=== PATIENT | female | born 1950 | race Caucasian/White ===

== ENCOUNTER → 2018-04-26 | Day surgery (SDC) | payer MEDICARE ==
[2018-04-22 11:25] LABS: BASOPHILS % 0.5 % (0.0-1.0); EOSINOPHILS # (AUTO) 0.2 (0.0-0.4); EOSINOPHILS % 2.6 % (0.0-6.0); HEMATOCRIT 41.4 % (34.2-44.1); HEMOGLOBIN 14.5 g/dL (12.0-16.0); LYMPHOCYTES # (AUTO) 2.1 (1.0-3.2); LYMPHOCYTES % 24.3 % (18.0-39.1); MEAN CORPUSCULAR HEMOGLOBIN 30.7 pg (28-32); MEAN CORPUSCULAR VOLUME 87.5 fL (81-99); MONOCYTES # (AUTO) 0.6 (0.2-0.8); MONOCYTES % 7.1 % (4.4-11.3); NEUTROPHILS # (AUTO) 5.5 (2.1-6.9); NEUTROPHILS % 65.1 % (38.7-80.0); PLATELET COUNT 202 x10e3/uL (140-360); RED BLOOD COUNT 4.73 x10e6/uL (3.6-5.1); RED CELL DISTRIBUTION WIDTH 12.9 % (11.7-14.4)
[~2018-04-26] MED LIST: FENTANYL CITRATE/PF 100MCG/2 ML INJ ONE; GLUCAGON FOR INJ 1 MG VIAL ONE; HYOSCYAMINE SULFATE 0.5 MG/ML INJ ONE; LATANOPROST2.5 ML OP; MIDAZOLAM HCL 2 MG/2 ML VIAL ONE; ONDANSETRON HCL INJ 2MG/ML 2ML 2 MG/ML VIAL ONE; PROPOFOL IV EMULSION 10 MG/ML 50 ML VIAL ONE; TIMOLOL MALEATE5 M1 OP; Z OSTEO BI FLEX; Z.0.ATENOLOL50 MG PO; Z.0.ORACEA40 MG PO; Z.1.LEVOTHYROXINE100 PO; Z.3.CENTRUM SILVER1; [UNRECOGNIZED DRUG - OTHER]; [UNRECOGNIZED DRUG - OTHER] OP
[2018-04-26 09:10] VITALS: BP 130/94
--- NOTE | 2018-04-26 17:39 | Operative Report ---
DATE OF PROCEDURE: 04/26/2018 SURGEON: Donnell Ruelas MD PROCEDURES: Colonoscopy and polypectomy. INDICATIONS FOR COLONOSCOPY: Surveillance colonoscopy, personal history of colon polyps. MEDICATIONS: The patient was done under MAC. Please see anesthesiologist's note. PROCEDURE IN DETAIL: With the patient in the left lateral decubitus position, a flexible fiberoptic Olympus colonoscope was inserted into the rectum with ease and advanced all the way to the cecum. The scope was then withdrawn slowly. Mucosa overlying the cecum, ascending colon appeared to be within normal limits. A minute polyp was hot biopsied from the distal transverse colon. Diverticular disease was noted to involve the distal descending and the sigmoid colon. One polyp was hot biopsied from the rectum. The scope was then retroflexed into the distal rectum. Small internal hemorrhoids were noted, none of which was actively bleeding. The scope was then straightened out and it was subsequently withdrawn. The patient tolerated the procedure well. IMPRESSION: 1. Transverse colon polyp, hot biopsied. 2. Diverticulosis. 3. Rectal polyp, hot biopsied. 4. Internal hemorrhoids, none actively bleeding. PLAN: Follow up histology. Initiate high-fiber, low-fat diet. Initiate high-fiber supplement. The patient might benefit from a followup colonoscopy in 5 years. Donnell Ruelas MD [facility] [place] /[id number] cc: Jake Parra DO
== END | disposition home or self-care (01) ==
LOC: OR 05:50
PROVIDERS: ATTEND Internal Medicine Gastroenterology
DX: Z12.11 Encounter for screening for malignant neoplasm of colon (principal); D12.3 Benign neoplasm of transverse colon; E03.9 Hypothyroidism, unspecified; H40.9 Unspecified glaucoma; I10 Essential (primary) hypertension; Z88.1 Allergy status to other antibiotic agents; Z88.5 Allergy status to narcotic agent; K63.5 Polyp of colon; K57.30 Diverticulosis of large intestine without perforation or abscess without bleeding; K64.8 Other hemorrhoids; Z86.010 Personal history of colon polyps; G47.33 Obstructive sleep apnea (adult) (pediatric); Z01.810 Encounter for preprocedural cardiovascular examination; Z01.812 Encounter for preprocedural laboratory examination
CPT/HCPCS: 36415; 93005; 45384; 85025; 88305; J1610; J1980; J2250; J2405; J2704; 45378

== ENCOUNTER → 2021-07-01 | Day surgery (SDC) | payer MEDICARE ==
[2021-06-28 12:43] LABS: BASOPHILS % 0.4 % (0.0-1.0); EOSINOPHILS # (AUTO) 0.2 (0.0-0.4); EOSINOPHILS % 3.6 % (0.0-6.0); HEMATOCRIT 41.5 % (34.2-44.1); HEMOGLOBIN 13.9 g/dL (12.0-16.0); LYMPHOCYTES # (AUTO) 1.9 (1.0-3.2); MEAN CORPUSCULAR HEMOGLOBIN 30.9 pg (28-32); MEAN CORPUSCULAR HGB CONC 33.5 g/dL (31-35); MEAN CORPUSCULAR VOLUME 92.2 fL (81-99); MONOCYTES # (AUTO) 0.6 (0.2-0.8); MONOCYTES % 8.5 % (4.4-11.3); NEUTROPHILS # (AUTO) 3.9 (2.1-6.9); NEUTROPHILS % 58.4 % (38.7-80.0); PLATELET COUNT 177 x10e3/uL (140-360); RED CELL DISTRIBUTION WIDTH 12.9 % (11.7-14.4)
[~2021-07-01] MED LIST changes: +CRANBERRY200 MG PO; -GLUCAGON FOR INJ 1 MG VIAL ONE; -HYOSCYAMINE SULFATE 0.5 MG/ML INJ ONE; +LIDOCAINE HCL 2% LOCAL INJ 5 ML SDV VIAL INJ ONE; +MELOXICAM15 MG PO; +POVIDONE IODINE 0.05% 0.05 % ML PO ONE; +PROBIOTIC & AC1 EACH PO; +PROPOFOL IV EMULSION 10 MG/ML 20 ML VIAL ONE; -PROPOFOL IV EMULSION 10 MG/ML 50 ML VIAL ONE; +VITAMIN C1000 MG PO; -Z.3.CENTRUM SILVER1; +Z.3.CENTRUM SILVER1 PO
[2021-07-01 15:35] VITALS: BP 138/73
== END | disposition home or self-care (01) ==
LOC: OR 11:24
PROVIDERS: ATTEND Internal Medicine Gastroenterology
DX: K86.89 Other specified diseases of pancreas (principal); K29.70 Gastritis, unspecified, without bleeding; K29.80 Duodenitis without bleeding; K20.90 Esophagitis, unspecified without bleeding; K44.9 Diaphragmatic hernia without obstruction or gangrene; K31.89 Other diseases of stomach and duodenum; Z71.3 Dietary counseling and surveillance; G47.33 Obstructive sleep apnea (adult) (pediatric); I10 Essential (primary) hypertension; E03.9 Hypothyroidism, unspecified; H40.9 Unspecified glaucoma; I45.10 Unspecified right bundle-branch block; F41.9 Anxiety disorder, unspecified; Z88.6 Allergy status to analgesic agent; Z88.8 Allergy status to other drugs, medicaments and biological substances; Z01.810 Encounter for preprocedural cardiovascular examination; Z01.812 Encounter for preprocedural laboratory examination; Z79.899 Other long term (current) drug therapy; Z68.34 Body mass index [BMI] 34.0-34.9, adult; Z86.010 Personal history of colon polyps; Z80.0 Family history of malignant neoplasm of digestive organs
CPT/HCPCS: 36415; 43239; 43260; 85025; 93005; J2001; J2250; J2405; J2704; J3010

== ENCOUNTER 2021-09-25 06:20 | Inpatient (IN) | payer MEDICARE ==
[2021-09-23 11:22] LABS: BASOPHILS # (AUTO) 0.1 (0.0-0.1); BASOPHILS % 0.8 % (0.0-1.0); EOSINOPHILS # (AUTO) 0.2 (0.0-0.4); EOSINOPHILS % 3.7 % (0.0-6.0); HEMATOCRIT 43.4 % (34.2-44.1); HEMOGLOBIN 14.6 g/dL (12.0-16.0); LYMPHOCYTES % 30.8 % (18.0-39.1); MEAN CORPUSCULAR HEMOGLOBIN 30.5 pg (28-32); MEAN CORPUSCULAR HGB CONC 33.6 g/dL (31-35); MEAN CORPUSCULAR VOLUME 90.6 fL (81-99); MONOCYTES # (AUTO) 0.7 (0.2-0.8); MONOCYTES % 10.1 % (4.4-11.3); NEUTROPHILS # (AUTO) 3.6 (2.1-6.9); NEUTROPHILS % 54.4 % (38.7-80.0); PLATELET COUNT 191 x10e3/uL (140-360); RED BLOOD COUNT 4.79 x10e6/uL (3.6-5.1); RED CELL DISTRIBUTION WIDTH 12.4 % (11.7-14.4)
[2021-09-23 11:55] LABS: CALCIUM 9.5 mg/dL (8.4-10.2); CREATININE, SERUM 0.72 mg/dL (0.57-1.11)
[~2021-09-25] VITALS: Ht 157.5 cm; Wt 87.5 kg
[~2021-09-25 06:20] MED LIST changes: -FENTANYL CITRATE/PF 100MCG/2 ML INJ ONE; -LIDOCAINE HCL 2% LOCAL INJ 5 ML SDV VIAL INJ ONE; -MIDAZOLAM HCL 2 MG/2 ML VIAL ONE; -ONDANSETRON HCL INJ 2MG/ML 2ML 2 MG/ML VIAL ONE; -POVIDONE IODINE 0.05% 0.05 % ML PO ONE; -PROPOFOL IV EMULSION 10 MG/ML 20 ML VIAL ONE; +RESTASIS1 EACH OU
[2021-09-25] MEDS ORDERED: ACETAMINOPHEN 1000 MG/100 ML 100 ML IV ONE (09:51)
[2021-09-25] MEDS ORDERED: BUPIVACAINE 0.25% 30ML SDV ONE (09:51)
[2021-09-25] MEDS ORDERED: METOCLOPRAMIDE HCL 10 MG/2ML VIAL IV ONE (12:20)
[2021-09-25] MEDS ORDERED: POVIDONE IODINE 0.05% 0.05 % ML PO ONE (12:20)
[2021-09-25] MEDS ORDERED: KETOROLAC TROMETHAMINE 30 MG/ML VIAL IV ONE (12:20)
[2021-09-25] MEDS ORDERED: VASOPRESSIN INJ 20 UNIT/ML VIAL INJ ONE (12:20)
[2021-09-25] MEDS ORDERED: NEOSTIGMINE 1 MG/ML 10ML VIAL IV ONE (12:20)
[2021-09-25] MEDS ORDERED: GLYCOPYRROLATE INJ 0.2 MG/ML VIAL IV ONE (12:20)
[2021-09-25] MEDS ORDERED: ROCURONIUM BROMIDE 10 MG/ML 5ML VIAL IV ONE (12:20)
[2021-09-25] MEDS ORDERED: PROPOFOL IV EMULSION 10 MG/ML 20 ML VIAL IV ONE (12:20)
[2021-09-25] MEDS ORDERED: ONDANSETRON HCL INJ 2MG/ML 2ML 2 MG/ML VIAL IV ONE (12:20)
[2021-09-25] MEDS ORDERED: DEXAMETHASONE SOD PHOS INJ 4 MG/ML SDV IV ONE (12:20)
[2021-09-25] MEDS ORDERED: SEVOFLURANE INHAL SOLN 250 ML PEN BTL INH ONE (12:20)
[2021-09-25] MEDS ORDERED: EPHEDRINE SULFATE INJ 50 MG/ML VIAL IV ONE (12:20)
[2021-09-25] MEDS ORDERED: LIDOCAINE HCL 2% LOCAL INJ 5 ML SDV VIAL INJ ONE (12:20)
[2021-09-25] MEDS ORDERED: PHENYLEPHRINE HCL 1% 10 MG/ML VIAL IV ONE (12:20)
[2021-09-25] MEDS ORDERED: FENTANYL CITRATE/PF 100MCG/2 ML INJ ONE ×2 (12:20→13:59)
[2021-09-25] MEDS ORDERED: MIDAZOLAM HCL 2 MG/2 ML VIAL ONE (13:59)
[2021-09-25] MEDS: SODIUM CHLORIDE 0.9% 1000ML 1,000 ML IV SCH ×2 (14:49→22:00)
[2021-09-25 15:44] VITALS: BP 113/70
[2021-09-25 15:56] VITALS: BP 110/69
[2021-09-25] MEDS ORDERED: ACETAMINOPHEN 1000 MG/100 ML IV PRN (16:00)
[2021-09-25] MEDS: (Cyclosporine (Restasis) 1 DROP) OP SCH (17:00)
[2021-09-25 21:00] VITALS: BP 110/66
[2021-09-25] MEDS: ATENOLOL 50 MG TAB PO SCH (21:00)
[2021-09-25] MEDS: HYDROMORPHONE 1MG/1ML INJ IV PRN (22:19)
[2021-09-26] VITALS (8 sets, daily range): BP systolic 104–119; BP diastolic 63–95
[2021-09-26] MEDS: HYDROMORPHONE 1MG/1ML INJ IV PRN ×6 (02:15→21:25)
[2021-09-26 05:42] LABS: BASOPHILS % 0.3 % (0.0-1.0); EOSINOPHILS # (AUTO) 0.1 (0.0-0.4); EOSINOPHILS % 0.7 % (0.0-6.0); HEMATOCRIT 35.7 % (34.2-44.1); HEMOGLOBIN 12.3 g/dL (12.0-16.0); LYMPHOCYTES # (AUTO) 2.2 (1.0-3.2); LYMPHOCYTES % 19.1 % (18.0-39.1); MEAN CORPUSCULAR HEMOGLOBIN 30.4 pg (28-32); MEAN CORPUSCULAR HGB CONC 34.5 g/dL (31-35); MEAN CORPUSCULAR VOLUME 88.4 fL (81-99); MONOCYTES # (AUTO) 1.2 (0.2-0.8); MONOCYTES % 9.9 % (4.4-11.3); NEUTROPHILS # (AUTO) 8.1 (2.1-6.9); NEUTROPHILS % 69.6 % (38.7-80.0); PLATELET COUNT 180 x10e3/uL (140-360); RED BLOOD COUNT 4.04 x10e6/uL (3.6-5.1); RED CELL DISTRIBUTION WIDTH 12.6 % (11.7-14.4)
[2021-09-26 06:05] LABS: ANION GAP 10.1 mmol/L (8-16); CALCIUM 8.3 mg/dL (8.4-10.2); CREATININE, SERUM 0.68 mg/dL (0.57-1.11); POTASSIUM 4.1 mmol/L (3.5-5.1)
[2021-09-26] MEDS: (Cyclosporine (Restasis) 1 DROP) OP SCH ×2 (08:27→16:52)
[2021-09-26] MEDS ORDERED: LATANOPROST(OPTH) 2.5 ML BTL OP SCH (09:00)
[2021-09-26] MEDS: SODIUM CHLORIDE 0.9% 1000ML 1,000 ML IV SCH ×2 (10:33→21:30)
[2021-09-26] MEDS ORDERED: ACETAMINOPHEN/CODEINE 300MG - 30MG TAB PO PRN (11:45)
[2021-09-26] MEDS: ONDANSETRON HCL INJ 2MG/ML 2ML 2 MG/ML VIAL IV PRN ×3 (13:44→21:25)
[2021-09-26] MEDS: ACETAMINOPHEN 1000 MG/100 ML IV SCH (18:42)
[2021-09-26] MEDS ORDERED: MELATONIN3 MG PO (19:37)
[2021-09-26] MEDS: ATENOLOL 50 MG TAB PO SCH (21:00)
[2021-09-26] MEDS: LATANOPROST(OPTH) 2.5 ML BTL OP SCH ×2 (21:00→21:39)
[2021-09-26] MEDS: MELATONIN 5 MG TABLET PO SCH (21:25)
[2021-09-27] VITALS (9 sets, daily range): BP systolic 117–135; BP diastolic 70–86
[2021-09-27] MEDS: ACETAMINOPHEN 1000 MG/100 ML IV SCH ×5 (00:37→23:42)
[2021-09-27] MEDS: SODIUM CHLORIDE 0.9% 1000ML 1,000 ML IV SCH ×2 (05:43→18:16)
[2021-09-27] MEDS: (Cyclosporine (Restasis) 1 DROP) OP SCH ×2 (09:00→17:00)
[2021-09-27 09:21] LABS: BASOPHILS % 0.3 % (0.0-1.0); EOSINOPHILS # (AUTO) 0.2 (0.0-0.4); EOSINOPHILS % 2.2 % (0.0-6.0); HEMATOCRIT 37.9 % (34.2-44.1); HEMOGLOBIN 12.6 g/dL (12.0-16.0); LYMPHOCYTES # (AUTO) 1.5 (1.0-3.2); LYMPHOCYTES % 15.2 % (18.0-39.1); MEAN CORPUSCULAR HEMOGLOBIN 30.8 pg (28-32); MEAN CORPUSCULAR HGB CONC 33.2 g/dL (31-35); MEAN CORPUSCULAR VOLUME 92.7 fL (81-99); MONOCYTES # (AUTO) 1.1 (0.2-0.8); MONOCYTES % 10.8 % (4.4-11.3); NEUTROPHILS # (AUTO) 7.1 (2.1-6.9); NEUTROPHILS % 71.2 % (38.7-80.0); PLATELET COUNT 170 x10e3/uL (140-360); RED BLOOD COUNT 4.09 x10e6/uL (3.6-5.1)
[2021-09-27 09:41] LABS: ALBUMIN/GLOBULIN RATIO 0.9 (0.8-2.0); ANION GAP 14.2 mmol/L (8-16); CALCIUM 8.7 mg/dL (8.4-10.2); CREATININE, SERUM 0.68 mg/dL (0.57-1.11); POTASSIUM 4.2 mmol/L (3.5-5.1)
[2021-09-27] MEDS: HYDROMORPHONE 1MG/1ML INJ IV PRN ×2 (10:00→16:09)
[2021-09-27] MEDS: ONDANSETRON HCL INJ 2MG/ML 2ML 2 MG/ML VIAL IV PRN ×2 (10:01→16:10)
[2021-09-27] MEDS ORDERED: DOCUSATE SODIUM LIQD 100 MG/10 ML UDC NG SCH (17:00)
[2021-09-27] MEDS ORDERED: MAGNESIUM HYDROXIDE 30 ML UDC PO ONE (17:45)
[2021-09-27] MEDS ORDERED: DOCUSATE SODIUM LIQD 100 MG/10 ML UDC NG PRN (18:15)
[2021-09-27] MEDS: LATANOPROST(OPTH) 2.5 ML BTL OP SCH (21:44)
[2021-09-27] MEDS: BISACODYL 10 MG SUPP PR SCH (21:45)
[2021-09-27] MEDS: MELATONIN 5 MG TABLET PO SCH (21:45)
[2021-09-27] MEDS: ATENOLOL 50 MG TAB PO SCH (21:45)
[2021-09-28 00:37] VITALS: BP 137/98
[2021-09-28 05:44] VITALS: BP 142/93
[2021-09-28] MEDS: ACETAMINOPHEN 1000 MG/100 ML IV SCH (06:13)
[2021-09-28 08:22] VITALS: BP 131/81
[2021-09-28] MEDS: BISACODYL 10 MG SUPP PR SCH (08:43)
[2021-09-28] MEDS: HYDROMORPHONE 1MG/1ML INJ IV PRN (08:43)
[2021-09-28] MEDS: (Cyclosporine (Restasis) 1 DROP) OP SCH (08:49)
[2021-09-28 08:51] VITALS: BP 131/81
== END 2021-09-28 11:00 | disposition home or self-care (01) | DRG 355 ==
LOC: OR 06:20 → PACU V 12:19 → MED/SURG3 13:57 → OBSVTOIN 09-27 13:42
PROVIDERS: ADMIT Surgery; ATTEND Surgery
PROC: 0WUF0JZ Supplement Abdominal Wall with Synthetic Substitute, Open Approach (ICD-10-PCS; principal; 2021-09-25 08:54)
DX: K43.2 Incisional hernia without obstruction or gangrene (principal); G47.33 Obstructive sleep apnea (adult) (pediatric); J45.909 Unspecified asthma, uncomplicated; R32 Unspecified urinary incontinence; E66.9 Obesity, unspecified; Z68.35 Body mass index [BMI] 35.0-35.9, adult; E03.9 Hypothyroidism, unspecified; Z85.828 Personal history of other malignant neoplasm of skin; G89.29 Other chronic pain; M25.559 Pain in unspecified hip; M25.569 Pain in unspecified knee; F41.9 Anxiety disorder, unspecified; Z88.1 Allergy status to other antibiotic agents; Z88.5 Allergy status to narcotic agent; I10 Essential (primary) hypertension; Z20.822 Contact with and (suspected) exposure to COVID-19
CPT/HCPCS: 36415; 71046; 80048; 80053; 85025; 94799; 96361; 99251; C1781; G0378; J0690; J1100; J1170; J1885; J2001; J2250; J2370; J2405; J2710; J2765; J3010; J7030

== ENCOUNTER 2022-07-13 18:39 | Emergency (ER) | payer MEDICARE ==
[~2022-07-13] VITALS: Ht 157.5 cm; Wt 90.7 kg
[~2022-07-13 18:39] MED LIST changes: +MELATONIN3 MG PO
[2022-07-13] MEDS ORDERED: KETOROLAC TROMETHAMINE 30 MG/ML VIAL IV STA (19:25)
[2022-07-13] MEDS ORDERED: METHYLPREDNISOLONE SOD SUCC 125 MG/2ML VIAL IV ONE (19:30)
[2022-07-13 20:36] VITALS: O2SAT 97
[2022-07-13] MEDS ORDERED: MEDROL4 M2 PO (21:23)
[2022-07-13] MEDS ORDERED: MELOXICAM7.5 MG PO (21:23)
== END 2022-07-13 21:38 | disposition home or self-care (01) ==
LOC: ER 18:54
DX: M25.552 Pain in left hip (principal); M70.72 Other bursitis of hip, left hip; I10 Essential (primary) hypertension; E03.9 Hypothyroidism, unspecified; G47.30 Sleep apnea, unspecified; H40.9 Unspecified glaucoma
CPT/HCPCS: 73502; 99284; J1885; J2930

== ENCOUNTER 2022-12-06 10:41 | Emergency (ER) | payer MEDICARE ==
[~2022-12-06] VITALS: Ht 157.5 cm; Wt 90.7 kg
[~2022-12-06 10:41] MED LIST changes: +MEDROL4 M2 PO; +MELOXICAM7.5 MG PO
[2022-12-06 10:54] VITALS: O2SAT 99
[2022-12-06] MEDS ORDERED: DEXAMETHASONE SOD PHOS 10 MG/1 ML VIAL IM ONE ×2 (11:30)
[2022-12-06] MEDS ORDERED: TRIAMCINOLONE ACET 40 MG/ML VIAL IM ONE (11:45)
[2022-12-06] MEDS ORDERED: MEDROL4 M2 PO (12:42)
== END 2022-12-06 13:00 | disposition home or self-care (01) ==
LOC: ER 10:50
DX: M25.552 Pain in left hip (principal); M70.62 Trochanteric bursitis, left hip; M77.8 Other enthesopathies, not elsewhere classified; I10 Essential (primary) hypertension; E03.9 Hypothyroidism, unspecified; G47.30 Sleep apnea, unspecified; H40.9 Unspecified glaucoma
CPT/HCPCS: 73502; 99283; J1100; J3301

== ENCOUNTER 2023-09-18 18:35 | Emergency (ER) | payer MEDICARE ==
[~2023-09-18] VITALS: Ht 157.5 cm; Wt 89.4 kg
[2023-09-18 19:01] VITALS: PULSE 76; RESP 16; TEMP 98.3
[2023-09-18] MEDS ORDERED: DEXAMETHASONE SOD PHOS 10 MG/1 ML VIAL ONE (20:55)
[2023-09-18] MEDS: DEXAMETHASONE SOD PHOS 10 MG/1 ML VIAL IM ONE (21:09)
[2023-09-18 21:22] VITALS: BP 140/100; PULSE 78; RESP 18; TEMP 97.9; O2SAT 99
== END 2023-09-18 21:25 | disposition home or self-care (01) ==
LOC: ER 19:04
DX: M25.552 Pain in left hip (principal); G89.29 Other chronic pain; I10 Essential (primary) hypertension; E03.9 Hypothyroidism, unspecified; G47.30 Sleep apnea, unspecified; H40.9 Unspecified glaucoma
CPT/HCPCS: 73502; 73700; 99283; J1100

== ENCOUNTER 2024-04-01 08:18 | Observation (INO) | payer MEDICARE ==
[2024-03-29 14:58] LABS: BASOPHILS % 0.7 % (0.0-1.0); EOSINOPHILS # (AUTO) 0.3 (0.0-0.4); EOSINOPHILS % 4.3 % (0.0-6.0); HEMATOCRIT 41.1 % (34.2-44.1); HEMOGLOBIN 14.2 g/dL (12.0-16.0); LYMPHOCYTES # (AUTO) 1.8 (1.0-3.2); LYMPHOCYTES % 29.6 % (18.0-39.1); MEAN CORPUSCULAR HEMOGLOBIN 31.6 pg (28-32); MEAN CORPUSCULAR HGB CONC 34.5 g/dL (31-35); MEAN CORPUSCULAR VOLUME 91.5 fL (81-99); MONOCYTES # (AUTO) 0.5 (0.2-0.8); MONOCYTES % 8.5 % (4.4-11.3); NEUTROPHILS # (AUTO) 3.4 (2.1-6.9); NEUTROPHILS % 56.6 % (38.7-80.0); PLATELET COUNT 182 x10e3/uL (140-360); RED BLOOD COUNT 4.49 x10e6/uL (3.6-5.1); RED CELL DISTRIBUTION WIDTH 12.8 % (11.7-14.4); WHITE BLOOD COUNT 6.02 x10e3/uL (4.8-10.8)
[2024-03-29 15:24] LABS: ALBUMIN 3.8 g/dL (3.5-5.0); ALBUMIN/GLOBULIN RATIO 1.2 (0.8-2.0); ANION GAP 14.6 mmol/L (8-16); BILIRUBIN,TOTAL 0.3 mg/dL (0.2-1.2); CALCIUM 9.8 mg/dL (8.4-10.2); CREATININE, SERUM 0.74 mg/dL (0.57-1.11); POTASSIUM 3.6 mmol/L (3.5-5.1); TOTAL PROTEIN 6.9 g/dL (6.5-8.1)
[~2024-04-01] VITALS: Ht 160 cm; Wt 80.3 kg
[~2024-04-01 08:18] MED LIST changes: +ELIQUIS5 MG PO
[2024-04-01] MEDS ORDERED: FENTANYL CITRATE/PF 100MCG/2 ML INJ ONE (11:14)
[2024-04-01] MEDS ORDERED: LIDOCAINE HCL 2% LOCAL INJ 5 ML SDV VIAL INJ ONE (11:14)
[2024-04-01] MEDS ORDERED: MIDAZOLAM HCL 2 MG/2 ML VIAL ONE (11:14)
[2024-04-01] MEDS ORDERED: PROPOFOL IV EMULSION 10 MG/ML 20 ML VIAL ONE (11:15)
[2024-04-01] MEDS ORDERED: SEVOFLURANE INHAL SOLN 250 ML PEN BTL ONE (11:19)
[2024-04-01] MEDS: LACTATED RINGER'S 1,000 ML ONE (13:00)
[2024-04-01] MEDS ORDERED: ACETAMINOPHEN 1000 MG/100 ML IV PRN (15:45)
[2024-04-01 17:13] VITALS: BP 145/78; PULSE 59; RESP 15; TEMP 97.5; O2SAT 99
[2024-04-01 17:20] VITALS: BP 145/78; PULSE 59; RESP 15; TEMP 97.5; O2SAT 99
[2024-04-01] MEDS: ACETAMINOPHEN/CODEINE 300MG - 30MG TAB PO PRN (18:42)
[2024-04-01] MEDS: ONDANSETRON HCL INJ 2MG/ML 2ML 2 MG/ML VIAL IV PRN (18:45)
[2024-04-01] MEDS: SODIUM CHLORIDE 0.9% 1000ML 1,000 ML IV SCH (18:47)
[2024-04-01 20:00] VITALS: BP 152/75; PULSE 55; RESP 18; TEMP 97.8; O2SAT 98
[2024-04-01 20:05] VITALS: BP 152/75; PULSE 55; RESP 18; TEMP 97.8; O2SAT 98
[2024-04-01] MEDS: ATENOLOL 50 MG TAB PO SCH (20:17)
[2024-04-01] MEDS: LATANOPROST(OPTH) 2.5 ML BTL OP SCH (20:18)
[2024-04-01] MEDS: Cyclosporine (Restasis) 1 DROP OU SCH (20:25)
[2024-04-01 23:52] VITALS: BP 128/67; PULSE 57; RESP 17; TEMP 98.7; O2SAT 98
[2024-04-02] MEDS: HYDROMORPHONE 1MG/1ML INJ IV PRN (01:46)
[2024-04-02 04:00] VITALS: BP 121/64; PULSE 56; RESP 17; TEMP 97.9; O2SAT 97
[2024-04-02 08:22] LABS: BASOPHILS # (AUTO) 0.1 (0.0-0.1); BASOPHILS % 0.5 % (0.0-1.0); EOSINOPHILS # (AUTO) 0.1 (0.0-0.4); EOSINOPHILS % 0.7 % (0.0-6.0); HEMATOCRIT 36.9 % (34.2-44.1); HEMOGLOBIN 12.6 g/dL (12.0-16.0); LYMPHOCYTES # (AUTO) 1.5 (1.0-3.2); LYMPHOCYTES % 13.3 % (18.0-39.1); MEAN CORPUSCULAR HGB CONC 34.1 g/dL (31-35); MEAN CORPUSCULAR VOLUME 90.9 fL (81-99); MONOCYTES # (AUTO) 1.1 (0.2-0.8); MONOCYTES % 9.9 % (4.4-11.3); NEUTROPHILS # (AUTO) 8.3 (2.1-6.9); NEUTROPHILS % 75.2 % (38.7-80.0); PLATELET COUNT 173 x10e3/uL (140-360); RED BLOOD COUNT 4.06 x10e6/uL (3.6-5.1); WHITE BLOOD COUNT 11.07 x10e3/uL (4.8-10.8)
[2024-04-02 08:25] VITALS: BP 131/69; PULSE 59; RESP 17; TEMP 98.1; O2SAT 100
[2024-04-02 08:33] VITALS: BP 131/69; PULSE 59; RESP 17; TEMP 98.1; O2SAT 100
[2024-04-02 08:34] LABS: ANION GAP 14.8 mmol/L (8-16); CALCIUM 9.2 mg/dL (8.4-10.2); CREATININE, SERUM 0.7 mg/dL (0.57-1.11); POTASSIUM 4.8 mmol/L (3.5-5.1)
[2024-04-02 11:15] VITALS: BP 124/75; PULSE 59; RESP 17; TEMP 98.6; O2SAT 100
== END 2024-04-02 15:10 | disposition home or self-care (01) ==
LOC: OR 08:18 → PACU V 15:32 → MED/SURG 16:50
PROVIDERS: ADMIT Surgery; ATTEND Surgery
DX: C50.911 Malignant neoplasm of unspecified site of right female breast (principal); G47.33 Obstructive sleep apnea (adult) (pediatric); I10 Essential (primary) hypertension; E78.5 Hyperlipidemia, unspecified; I48.91 Unspecified atrial fibrillation; E03.9 Hypothyroidism, unspecified; Z88.6 Allergy status to analgesic agent; Z01.810 Encounter for preprocedural cardiovascular examination; Z01.812 Encounter for preprocedural laboratory examination; Z01.818 Encounter for other preprocedural examination; Z79.02 Long term (current) use of antithrombotics/antiplatelets; Z79.899 Other long term (current) drug therapy
CPT/HCPCS: 19303; 19307; 36415 ×2; 71046; 80048; 80053; 85025 ×2; 88307; 88309; 88342; 93005; G0378 ×2; J0690 ×2; J1171; J2003; J2250; J2405; J2704; J3010; J7030 ×2; J7121

== ENCOUNTER → 2024-05-16 | Outpatient (REF) | payer MEDICARE ==
[2024-05-16 10:12] LABS: BASOPHILS % 0.6 % (0.0-1.0); EOSINOPHILS # (AUTO) 0.3 (0.0-0.4); EOSINOPHILS % 4.4 % (0.0-6.0); HEMATOCRIT 40.4 % (34.2-44.1); LYMPHOCYTES # (AUTO) 1.8 (1.0-3.2); LYMPHOCYTES % 28.2 % (18.0-39.1); MEAN CORPUSCULAR HEMOGLOBIN 31.6 pg (28-32); MEAN CORPUSCULAR HGB CONC 34.7 g/dL (31-35); MEAN CORPUSCULAR VOLUME 91.2 fL (81-99); MONOCYTES # (AUTO) 0.6 (0.2-0.8); MONOCYTES % 9.8 % (4.4-11.3); NEUTROPHILS # (AUTO) 3.6 (2.1-6.9); NEUTROPHILS % 56.7 % (38.7-80.0); PLATELET COUNT 188 x10e3/uL (140-360); RED BLOOD COUNT 4.43 x10e6/uL (3.6-5.1); RED CELL DISTRIBUTION WIDTH 13.2 % (11.7-14.4); WHITE BLOOD COUNT 6.32 x10e3/uL (4.8-10.8)
[2024-05-16 10:30] LABS: ALBUMIN 3.9 g/dL (3.5-5.0); ALBUMIN/GLOBULIN RATIO 1.3 (0.8-2.0); ANION GAP 13.6 mmol/L (8-16); BILIRUBIN,TOTAL 0.8 mg/dL (0.2-1.2); CALCIUM 9.4 mg/dL (8.4-10.2); CREATININE, SERUM 0.7 mg/dL (0.57-1.11); POTASSIUM 4.6 mmol/L (3.5-5.1); TOTAL PROTEIN 6.8 g/dL (6.5-8.1)
== END ==
LOC: LAB 09:39 → EDSTATUS 05-20 12:00
PROVIDERS: ATTEND Surgery
DX: Z01.818 Encounter for other preprocedural examination (principal); I87.2 Venous insufficiency (chronic) (peripheral)
CPT/HCPCS: 36415; 80053; 85025

== ENCOUNTER → 2024-05-24 | Day surgery (SDC) | payer MEDICARE ==
[~2024-05-24] MED LIST changes: +DEXAMETHASONE SOD PHOS INJ 4 MG/ML SDV ONE; +FENTANYL CITRATE/PF 100MCG/2 ML INJ ONE; +LIDOCAINE HCL 2% LOCAL INJ 5 ML SDV VIAL INJ ONE; +PHENYLEPHRINE HCL 1% 10 MG/ML VIAL ONE; +PROPOFOL IV EMULSION 10 MG/ML 20 ML VIAL ONE; +SEVOFLURANE INHAL SOLN 250 ML PEN BTL ONE
[2024-05-24] MEDS: LACTATED RINGER'S 1,000 ML ONE (09:35)
[2024-05-24 12:20] VITALS: BP 159/85; PULSE 55; RESP 16; O2SAT 98
== END | disposition home or self-care (01) ==
LOC: OR 08:18
PROVIDERS: ATTEND Surgery
DX: C50.911 Malignant neoplasm of unspecified site of right female breast (principal); G47.33 Obstructive sleep apnea (adult) (pediatric); I48.91 Unspecified atrial fibrillation; I10 Essential (primary) hypertension; E78.5 Hyperlipidemia, unspecified; E03.9 Hypothyroidism, unspecified; E66.9 Obesity, unspecified; Z88.6 Allergy status to analgesic agent; Z88.8 Allergy status to other drugs, medicaments and biological substances; Z79.02 Long term (current) use of antithrombotics/antiplatelets; Z79.899 Other long term (current) drug therapy
CPT/HCPCS: 36561; 76000; C1751; J1100; J2003; J2371; J2704; J3010; J7121

== ENCOUNTER → 2024-09-16 | Day surgery (SDC) | payer MEDICARE ==
[2024-09-12 11:05] LABS: BASOPHILS % 0.4 % (0.0-1.0); EOSINOPHILS % 4.5 % (0.0-6.0); LYMPHOCYTES % 25.2 % (18.0-39.1); MONOCYTES % 10.3 % (4.4-11.3); NEUTROPHILS % 59.2 % (38.7-80.0); RED CELL DISTRIBUTION WIDTH 12.5 % (11.7-14.4)
[2024-09-12 11:43] LABS: EST GLOMERULAR FILTRATION RATE 88.0 ML/MIN (>=60)
[~2024-09-16] MED LIST changes: -FENTANYL CITRATE/PF 100MCG/2 ML INJ ONE; +KETOROLAC TROMETHAMINE 30 MG/ML VIAL ONE; +MIDAZOLAM HCL 2 MG/2 ML VIAL ONE; +ONDANSETRON HCL INJ 2MG/ML 2ML 2 MG/ML VIAL ONE; -PHENYLEPHRINE HCL 1% 10 MG/ML VIAL ONE; -SEVOFLURANE INHAL SOLN 250 ML PEN BTL ONE
[2024-09-16] MEDS: LACTATED RINGER'S 1,000 ML ONE (07:54)
[2024-09-16] MEDS: MEPERIDINE HCL INJ 25 MG/ML VIAL ONE (10:00)
[2024-09-16 11:00] VITALS: BP 133/77; PULSE 52; RESP 18; O2SAT 96
== END | disposition home or self-care (01) ==
LOC: OR 06:22
PROVIDERS: ATTEND Surgery
DX: T82.594A Other mechanical complication of infusion catheter, initial encounter (principal); I10 Essential (primary) hypertension; I48.91 Unspecified atrial fibrillation; C50.919 Malignant neoplasm of unspecified site of unspecified female breast; Y83.8 Other surgical procedures as the cause of abnormal reaction of the patient, or of later complication, without mention of misadventure at the time of the procedure; Z79.01 Long term (current) use of anticoagulants; Z79.890 Hormone replacement therapy; Z79.899 Other long term (current) drug therapy; Z01.810 Encounter for preprocedural cardiovascular examination; Z01.812 Encounter for preprocedural laboratory examination
CPT/HCPCS: 36415; 80053; 85025; 88300; 93005; J1100; J1885; J2003; J2175; J2250; J2405